=== PATIENT | female | born 1940 | race Caucasian/White ===

== ENCOUNTER 2023-05-23 06:41 | Outpatient (OUT) | payer OTHER, MEDICAID, SELFPAY ==
--- NOTE | 2023-05-23 07:00 | MR_ITS ---
The [address] [address] Patient Name: KRISTIN ESCALANTE MRN: [id number] date: 1940 Sex: F Assigned Patient Location: [facility] Current Patient Location: [facility] Accession/Order Number: [id number] Exam Date: 05/23/2023 07:05 Report Date: 05/23/2023 11:06 At the request of: LASHAE MARROQUIN Procedure: MR shoulder RT wo con EXAM: MR shoulder RT wo con REASON FOR EXAM: acute pain of right shoulder. TECHNIQUE: Multiplanar, multisequence imaging of the right shoulder was performed without contrast COMPARISON: None. FINDINGS: Degraded by motion. The acromioclavicular joint is congruent with mild joint space narrowing, capsular hypertrophy and subchondral edema. There is diffuse broad-based thickening and ossification of the distal coracoacromial ligament consistent with subacromial spur. Fluid within the subacromial subdeltoid bursa is nonspecific incidental full-thickness rotator cuff tear. Superimposed on tendinosis, there are full-thickness, fullwidth tears of the supraspinatus and infraspinatus tendons with proximal retraction the level the glenoid. The teres minor tendon is intact. The subscapularis tendon demonstrates full-thickness, fullwidth tear. Medialization the extra capsular biceps tendon is consistent with tear of the transverse humeral ligament. The biceps tendon is thickened with intermediate signal consistent with tendinosis. No tear identified. Moderate amount of fluid is present within the extracapsular biceps tendon sheath, likely decompression from the underlying joint. There is atrophy of the supraspinatus, infraspinatus and subscapularis muscles. The humerus is high riding on the glenoid. Intermediate to high-grade chondrosis of the glenohumeral cartilage. Circumferential labral degeneration. Moderate size joint effusion. The bone marrow signal is without fracture. The cartilage space is patent. No axillary lymphadenopathy. MR/MR shoulder RT wo con IMPRESSION: 1. Massive rotator cuff tear. 2. Tear of the transverse humeral ligament with moderate biceps tendinosis. No definite biceps tear identified. 3. 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 4. 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 Electronically authenticated by: SONAL ALVARADO Date: 05/23/2023 11:06
== END 2023-05-23 06:42 | disposition home or self-care (01) ==
LOC: RAD 06:46
PROVIDERS: Visit Provider Orthopaedic Surgery
DX: M25.511 Pain in right shoulder (principal); M75.101 Unspecified rotator cuff tear or rupture of right shoulder, not specified as traumatic; M25.411 Effusion, right shoulder
CPT/HCPCS: 73221